=== PATIENT | female | born 1995 | race Caucasian/White ===

== ENCOUNTER 2017-05-25 12:26 | Emergency (ER) | payer BC ==
[2017-05-25 13:13] LABS: Hematocrit 39.2 % (37.0-47.0); Hemoglobin 13.4 gm/dL (12.5-16.0); Mean Cell Volume 91.6 fl (78-100); Mean Corpuscular Hemoglobin 31.3 pg (27-31); Mean Corpuscular Hgb Conc 34.2 g/dl (32-36); Mean Platelet Volume 9.8 fl (6.0-9.5); Neutrophil # 10.8 K/mm3 (1.3-6.0); Platelet Count 293 K/mm3 (150-450); Red Blood Count 4.28 M/mm3 (4.2-5.4); Red Cell Distribution Width 10.6 % (11.5-14.0); White Blood Count 11.8 K/mm3 (4.0-10.5)
[2017-05-25] MEDS ORDERED: MORPHINE SULFATE 2 MG/ML DISP.SYRIN ONE (14:29)
[2017-05-25 14:40] VITALS: BP 120/70
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
== END 2017-05-25 15:20 | disposition home or self-care (01) ==
LOC: ER 12:26
DX: S09.90XA Unspecified injury of head, initial encounter (principal); M79.1 Myalgia; V43.52XA Car driver injured in collision with other type car in traffic accident, initial encounter; Y92.414 Local residential or business street as the place of occurrence of the external cause; E03.9 Hypothyroidism, unspecified